=== PATIENT | male | born 1940 | race Caucasian/White ===

== ENCOUNTER 2017-02-21 08:46 | Emergency (ER) | payer MEDICARE, BC ==
[~2017-02-21] VITALS: Ht 182.9 cm; Wt 79.5 kg
[~2017-02-21 08:46] MED LIST: ASPIR-LOW81 MG PO; ASPIRIN E.C. 8181 MG PO; ATORVASTATIN; BACTRIM DS 8001 TAB PO; CARAFATE 1GM1 G PO; LIPITOR 40MG TA40 MG PO; METRONIDAZOLE500 MG PO; MICROZIDE12.5 MG PO; PERCOCET 5/321 UDTAB PO; PHENERGAN 25 TA25 MG PO; PHENERGAN25 MG RC
[2017-02-21 08:48] VITALS: TEMP 98
[2017-02-21] MEDS ORDERED: NEXIUM 40MG40 MG PO (08:53)
[2017-02-21 09:40] LABS: BASO % 0.5 % (0.0-2.0); EOS # 0.1 (0.0-0.7); EOS % 1.8 % (0-4.0); GRAN # 3.7 (1.4-6.5); GRAN % 68.3 % (42.2-75.2); HEMATOCRIT 46.3 % (42.0-52.0); HEMOGLOBIN 15.5 g/dl (13.5-18.0); LYMPH % 18.8 % (20.0-51.0); MEAN CELL VOLUME 88 fl (80.0-100.0); MEAN CORPUSCULAR HEMOGLOBIN 29 pg (27.0-31.0); MEAN CORPUSCULAR HGB CONC 34 g/dl (33.0-37.0); MEAN PLATELET VOLUME 11.4 fl (7.4-10.4); MONO # 0.6 (0.1-0.6); MONO % 10.4 % (1.7-9.3); PLATELET COUNT 135 K/mm3 (130-400); RED BLOOD COUNT 5.28 M/mm3 (4.20-5.60); REDCELL DISTRIBUTION WIDTH-CV 12.6 % (11.5-14.5); WHITE BLOOD COUNT 5.5 K/mm3 (4.8-10.8)
[2017-02-21 09:48] LABS: ADJUSTED CALCIUM 9.1 mg/dL (8.4-10.2); ALANINE AMINOTRANSFERASE 26 U/L (21-72); ALBUMIN 4.2 gm/dL (3.5-5.0); ALKALINE PHOSPHATASE 62 U/L (50-136); ANION GAP 10 mmol/L (7-16); BILIRUBIN,TOTAL 1.4 mg/dL (0.0-1.0); BLOOD UREA NITROGEN 21 mg/dL (9-20); C-REACTIVE PROTEIN < 0.5 mg/dL (0.0-0.9); CALCIUM 9.3 mg/dL (8.4-10.2); CARBON DIOXIDE 26 mmol/L (22-30); CHLORIDE 102 mmol/L (98-107); GLUCOSE 100 mg/dL (74-106); LIPASE 124 U/L (23-300); POTASSIUM 3.5 mmol/L (3.4-5.0); SODIUM 139 mmol/L (137-145); TOTAL PROTEIN 7.3 gm/dL (6.4-8.2)
[2017-02-21] MEDS ORDERED: CARAFATE 1GM1 G PO (11:26)
[2017-02-21 12:00] VITALS: BP 144/78; PULSE 48
== END 2017-02-21 12:00 | disposition home or self-care (01) ==
LOC: COL.ER 08:46
PROVIDERS: Emergency Medicine
DX: R10.11 Right upper quadrant pain (principal); I10 Essential (primary) hypertension; K21.9 Gastro-esophageal reflux disease without esophagitis; Z90.49 Acquired absence of other specified parts of digestive tract; Z79.82 Long term (current) use of aspirin
CPT/HCPCS: J2405

== ENCOUNTER → 2017-03-05 | Outpatient (CLI) | payer MEDICARE, BC ==
[~2017-03-05] MED LIST changes: +B-121000 MCG PO; +CALCIUM CITRAT950 MG PO; +COLACE 100100 MG/CAP PO; +DEXILANT60 MG PO; +HCTZ12.5TAB PO; +METAMUCIL3.4 GM/DOS PO; +MOTRIN 600600 MG/TAB PO; +NEXIUM 40MG40 MG PO; +NORCO 325 MG-51 TAB PO
== END ==
LOC: COL.RAD 06:01
DX: R11.0 Nausea (principal)
CPT/HCPCS: A9537

== ENCOUNTER 2017-03-08 08:27 | Emergency (ER) | payer MEDICARE, BC ==
[~2017-03-08] VITALS: Ht 182.9 cm; Wt 79.5 kg
[~2017-03-08 08:27] MED LIST changes: -B-121000 MCG PO; -CALCIUM CITRAT950 MG PO; -COLACE 100100 MG/CAP PO; -DEXILANT60 MG PO; -HCTZ12.5TAB PO; -METAMUCIL3.4 GM/DOS PO; -MOTRIN 600600 MG/TAB PO; -NORCO 325 MG-51 TAB PO
[2017-03-08 08:30] VITALS: TEMP 97.9
[2017-03-08] MEDS ORDERED: LIPITOR 40MG TA40 MG PO (08:45)
[2017-03-08] MEDS ORDERED: HCTZ12.5TAB PO (08:46)
[2017-03-08] MEDS ORDERED: DEXILANT60 MG PO (08:47)
[2017-03-08] MEDS ORDERED: CALCIUM CITRAT950 MG PO (08:49)
[2017-03-08] MEDS ORDERED: B-121000 MCG PO (08:49)
[2017-03-08] MEDS ORDERED: METAMUCIL3.4 GM/DOS PO (08:50)
[2017-03-08 09:57] LABS: BASO % 0.8 % (0.0-2.0); EOS # 0.1 (0.0-0.7); EOS % 1.5 % (0-4.0); GRAN # 3.7 (1.4-6.5); GRAN % 69.9 % (42.2-75.2); HEMATOCRIT 44.5 % (42.0-52.0); HEMOGLOBIN 15.1 g/dl (13.5-18.0); LYMPH # 0.9 (1.2-3.4); LYMPH % 17.9 % (20.0-51.0); MEAN CELL VOLUME 88 fl (80.0-100.0); MEAN CORPUSCULAR HEMOGLOBIN 30 pg (27.0-31.0); MEAN CORPUSCULAR HGB CONC 34 g/dl (33.0-37.0); MEAN PLATELET VOLUME 9.9 fl (7.4-10.4); MONO # 0.5 (0.1-0.6); MONO % 9.5 % (1.7-9.3); PLATELET COUNT 178 K/mm3 (130-400); RED BLOOD COUNT 5.08 M/mm3 (4.20-5.60); REDCELL DISTRIBUTION WIDTH-CV 12.5 % (11.5-14.5); WHITE BLOOD COUNT 5.2 K/mm3 (4.8-10.8)
[2017-03-08 10:14] LABS: ADJUSTED CALCIUM 8.9 mg/dL (8.4-10.2); ALANINE AMINOTRANSFERASE 28 U/L (21-72); ALKALINE PHOSPHATASE 55 U/L (50-136); ANION GAP 10 mmol/L (7-16); BILIRUBIN,TOTAL 1.1 mg/dL (0.0-1.0); BLOOD UREA NITROGEN 22 mg/dL (9-20); CALCIUM 8.9 mg/dL (8.4-10.2); CARBON DIOXIDE 26 mmol/L (22-30); CHLORIDE 102 mmol/L (98-107); CREATININE, serum 0.76 mg/dL (0.66-1.25); GLUCOSE 88 mg/dL (74-106); LIPASE 137 U/L (23-300); POTASSIUM 3.7 mmol/L (3.4-5.0); SODIUM 138 mmol/L (137-145); TOTAL PROTEIN 6.8 gm/dL (6.4-8.2)
[2017-03-08 10:16] LABS: C-REACTIVE PROTEIN < 0.5 mg/dL (0.0-0.9)
[2017-03-08 10:22] LABS: TROPONIN-I < 0.012 ng/mL (0.000-0.034)
[2017-03-08] MEDS ORDERED: PHENERGAN 25 TA25 MG PO (10:43)
[2017-03-08] MEDS ORDERED: NORCO 325 MG-51 TAB PO (10:43)
[2017-03-08 10:56] VITALS: BP 153/84; PULSE 57
== END 2017-03-08 11:03 | disposition home or self-care (01) ==
LOC: COL.ER 08:27
PROVIDERS: Physician Assistant
DX: K80.50 Calculus of bile duct without cholangitis or cholecystitis without obstruction (principal); I10 Essential (primary) hypertension; E78.00 Pure hypercholesterolemia, unspecified; Z79.82 Long term (current) use of aspirin
CPT/HCPCS: J7040

== ENCOUNTER → 2017-03-18 | Outpatient (CLI) | payer MEDICARE, BC ==
[~2017-03-18] MED LIST changes: +B-121000 MCG PO; +CALCIUM CITRAT950 MG PO; +COLACE 100100 MG/CAP PO; +DEXILANT60 MG PO; +HCTZ12.5TAB PO; +METAMUCIL3.4 GM/DOS PO; +MOTRIN 600600 MG/TAB PO; +NORCO 325 MG-51 TAB PO
== END ==
LOC: COL.RAD 11:00
DX: Z01.812 Encounter for preprocedural laboratory examination (principal); I77.811 Abdominal aortic ectasia; I70.0 Atherosclerosis of aorta; I74.09 Other arterial embolism and thrombosis of abdominal aorta; K57.30 Diverticulosis of large intestine without perforation or abscess without bleeding; K21.9 Gastro-esophageal reflux disease without esophagitis
CPT/HCPCS: J0690; Q9967

== ENCOUNTER 2017-03-20 10:31 | Day surgery (SDC) | payer MEDICARE, BC ==
[~2017-03-20] VITALS: Ht 182.9 cm; Wt 76.1 kg
[~2017-03-20 10:31] MED LIST changes: -COLACE 100100 MG/CAP PO; -MOTRIN 600600 MG/TAB PO
[2017-03-20 11:19] VITALS: BP 136/86; PULSE 67; TEMP 97.9
[2017-03-20] MEDS ORDERED: COLACE 100100 MG/CAP PO (13:54)
[2017-03-20] MEDS ORDERED: NORCO 325 MG-51 TAB PO (13:55)
[2017-03-20] MEDS ORDERED: MOTRIN 600600 MG/TAB PO (13:55)
[2017-03-20 14:20] VITALS: BP 146/65; PULSE 66; TEMP 97.3
[2017-03-20 14:35] VITALS: BP 144/73; PULSE 66
[2017-03-20 14:50] VITALS: BP 145/73; PULSE 65
[2017-03-20 15:05] VITALS: BP 148/68; PULSE 69
== END 2017-03-20 15:45 | disposition home or self-care (01) ==
LOC: SDCO 10:31
DX: K81.1 Chronic cholecystitis (principal); K66.0 Peritoneal adhesions (postprocedural) (postinfection); I10 Essential (primary) hypertension; K21.9 Gastro-esophageal reflux disease without esophagitis; E78.00 Pure hypercholesterolemia, unspecified; Z82.49 Family history of ischemic heart disease and other diseases of the circulatory system
CPT/HCPCS: J0690; J1100; J2405; J2704; J2710; J3010; J7120; Q9967